=== PATIENT | female | born 1970 | race Caucasian/White ===

== ENCOUNTER → 2017-09-11 | Outpatient (CLI) | payer OTHER ==
[2017-09-11 09:42] LABS: HCT 34.6 % (34.0-46.0); MCH 29.1 pg (25.0-35.0); MCHC 31.8 g/dL (31.0-37.0); MCV 91.6 fL (80.0-100.0); Mean Platelet Volume 7.3; Platelet Count 221 k/uL (150-450); RBC 3.78 m/uL (3.80-5.40); RDW 13.5 % (11.5-15.5); WBC 6.2 k/uL (3.8-10.6)
[2017-09-11 18:32] LABS: Hemoglobin A1C 4.7 % (4.0-6.0)
== END | disposition home or self-care (01) ==
LOC: LABWHC1 08:12
PROVIDERS: ATTEND Obstetrics & Gynecology
DX: Z34.90 Encounter for supervision of normal pregnancy, unspecified, unspecified trimester (principal); Z3A.00 Weeks of gestation of pregnancy not specified
CPT/HCPCS: 36415; 82950; 83036; 85027; 86762; 86780; 86850; 86900; 86901; 87340

== ENCOUNTER 2017-09-23 08:09 | Emergency (ER) | payer OTHER ==
[2017-09-23 08:14] VITALS: TEMP 98.2
--- NOTE | 2017-09-23 08:32 | ED ---
Extremity Problem HPI - General Chief complaint: Extremity Problem,Nontraumatic Stated complaint: Poss Blood Clot Time Seen by Provider: 09/23/17 08:19 Source: patient, RN notes reviewed, old records reviewed Mode of arrival: ambulatory Limitations: no limitations - History of Present Illness Initial comments: 47-year-old female is currently 14 weeks presents emergency Department with sudden onset of left leg redness and swelling. She reports having history of blood clots in the past. She reports that she was prescribed Lovenox but then just decided to stop taking it. Patient relates that she did take a Lovenox and 2 baby aspirin this morning. Patient states that she sees follows with Dr. Rod. She reports that her leg is painful. She denies any knee pain. No history of trauma. - Related Data Home Medications Medication Instructions Recorded Confirmed Aspirin 162 mg PO DAILY 09/23/17 09/23/17 Calcium Carbonate/Vitamin D3 1 tab PO DAILY 09/23/17 09/23/17 [Calcium 600-Vit D3 400 Caplet] Cholecalciferol (Vitamin D3) 2,000 unit PO DAILY 09/23/17 09/23/17 [Vitamin D3] Enoxaparin Sodium 40 mg SQ DAILY 09/23/17 09/23/17 Ferrous Sulfate [Feosol] 325 mg PO DAILY 09/23/17 09/23/17 Multivitamins, Thera [Multivitamin 2 tab PO DAILY 09/23/17 09/23/17 (formulary)] Phytonadione [Vitamin K] 5 mg PO DAILY 09/23/17 09/23/17 Tgi-Brqi-Fxllk Acid 1 cap PO DAILY 09/23/17 09/23/17 [-U Capsule (formulary)] Vitamin A 8,000 unit PO DAILY 09/23/17 09/23/17 Vitamin E 1,000 unit PO DAILY 09/23/17 09/23/17 Previous Rx's Medication Instructions Recorded Cephalexin [Keflex] 500 mg PO Q6HR #28 cap 09/23/17 Allergies Allergy/AdvReac Type Severity Reaction Status Date / Time No Known Allergies Allergy Verified 09/23/17 09:16 Review of Systems ROS Statement: Those systems with pertinent positive or pertinent negative responses have been documented in the HPI. ROS Other: All systems not noted in ROS Statement are negative. Past Medical History Past Medical History: Deep Vein Thrombosis (DVT) History of Any Multi-Drug Resistant Organisms: None Reported Past Surgical History: Bariatric Surgery Additional Past Surgical History / Comment(s): skin removal Past Psychological History: No Psychological Hx Reported Smoking Status: Former smoker Past Alcohol Use History: None Reported Past Drug Use History: None Reported General Exam - General Exam Comments Initial Comments: 47-year-old female. Alert. No acute distress. Limitations: no limitations General appearance: alert, in no apparent distress Head exam: Present: atraumatic, normocephalic, normal inspection Eye exam: Present: normal appearance, PERRL, EOMI. Absent: scleral icterus, conjunctival injection, periorbital swelling ENT exam: Present: normal exam, mucous membranes moist Neck exam: Present: normal inspection. Absent: tenderness, meningismus, lymphadenopathy Respiratory exam: Present: normal lung sounds bilaterally. Absent: respiratory distress, wheezes, rales, rhonchi, stridor Cardiovascular Exam: Present: regular rate, normal rhythm, normal heart sounds. Absent: systolic murmur, diastolic murmur, rubs, gallop, clicks GI/Abdominal exam: Present: soft, normal bowel sounds. Absent: distended, tenderness, guarding, rebound, rigid Extremities exam: Present: full ROM, normal capillary refill. Absent: normal inspection, tenderness, pedal edema, joint swelling, calf tenderness Right Knee exam: Present: normal inspection, full ROM Lower Leg exam: Present: full ROM, tenderness, swelling, erythema. Absent: normal inspection, abrasion, laceration, ecchymosis Ankle exam: Present: normal inspection, full ROM Foot/Toe exam: Present: normal inspection, full ROM Neurovascular tendon exam: Present: no vascular compromise Gait: observed and normal Back exam: Present: normal inspection Neurological exam: Present: alert, oriented X3, CN II-XII intact Course Vital Signs 09/23/17 09/23/17 08:11 10:25 Temperature 98.2 F Pulse Rate 63 57 L Respiratory 20 18 Rate Blood Pressure 120/56 105/56 O2 Sat by Pulse 100 98 Oximetry Medical Decision Making - Medical Decision Making 47-year-old female presents a chief complaint of lower extremity redness and swelling. Concern for possible DVT. Currently 14 weeks . She does have some erythema up the calf and around. Patient had ultrasound which was negative for DVT. White blood cell count was within normal limits. The leg is warm to touch. We'll put the patient on Keflex given a dose of Rocephin to cover for cellulitis. Discussion is follow-up promptly with PCP. This seema a line around the area of the areas worsening of redness should return for follow- up. Patient understood history plan will comply. Return parameters were discussed. - Lab Data Result diagrams: 09/23/17 08:33 09/23/17 08:33 Lab Results 09/23/17 09/23/17 09/23/17 Range/Units 08:33 08:33 08:33 WBC 6.6 (3.8-10.6) k/uL RBC 3.97 (3.80-5.40) m/uL Hgb 11.8 (11.4-16.0) gm/dL Hct 35.6 (34.0-46.0) % MCV 89.8 (80.0-100.0) fL MCH 29.7 (25.0-35.0) pg MCHC 33.1 (31.0-37.0) g/dL RDW 13.9 (11.5-15.5) % Plt Count 209 (150-450) k/uL Neutrophils % 71 % Lymphocytes % 19 % Monocytes % 7 % Eosinophils % 1 % Basophils % 0 % Neutrophils # 4.7 (1.3-7.7) k/uL Lymphocytes # 1.2 (1.0-4.8) k/uL Monocytes # 0.5 (0-1.0) k/uL Eosinophils # 0.1 (0-0.7) k/uL Basophils # 0.0 (0-0.2) k/uL PT 11.6 (9.0-12.0) sec INR 1.2 H (<1.2) APTT 28.7 (22.0-30.0) sec Sodium 142 (137-145) mmol/L Potassium 3.5 (3.5-5.1) mmol/L Chloride 107 (98-107) mmol/L Carbon Dioxide 25 (22-30) mmol/L Anion Gap 10 mmol/L BUN 9 (7-17) mg/dL Creatinine 0.48 L (0.52-1.04) mg/dL Est GFR (CKD-EPI)AfAm >90 (>60 ml/min/1.73 sqM) Est GFR (CKD-EPI)NonAf >90 (>60 ml/min/1.73 sqM) Glucose 66 L (74-99) mg/dL Calcium 8.7 (8.4-10.2) mg/dL - Radiology Data Radiology results: report reviewed Ultrasound was negative for DVT. Disposition Clinical Impression: Cellulitis of right leg Disposition: HOME SELF-CARE Condition: Good Instructions: Cellulitis (ED) Additional Instructions: Patient advised to monitor the area of redness of his worsening please return to emergency department if any fevers or chills. Take Motrin Tylenol for pain. Patient should keep the leg up and elevated. Patient should follow-up with primary care provider in the next 1-2 days. Prescriptions: Cephalexin [Keflex] 500 mg PO Q6HR #28 cap Is patient prescribed a controlled substance at d/c from ED?: No If prescribed controlled substance>3 days was MAPS reviewed?: No When asked, does pt state using other controlled substances?: No Referrals: Bubba Maldonado DO [Primary Care Provider] - 1-2 days Time of Disposition: 10:00
[2017-09-23 08:49] LABS: Basophils % (A) 0 %; Eosinophils # (A) 0.1 k/uL (0-0.7); Eosinophils % (A) 1 %; HCT 35.6 % (34.0-46.0); HGB 11.8 gm/dL (11.4-16.0); Lymphocytes # (A) 1.2 k/uL (1.0-4.8); Lymphocytes % (A) 19 %; MCH 29.7 pg (25.0-35.0); MCHC 33.1 g/dL (31.0-37.0); MCV 89.8 fL (80.0-100.0); Mean Platelet Volume 7.4; Monocytes # (A) 0.5 k/uL (0-1.0); Monocytes % (A) 7 %; Neutrophils # (A) 4.7 k/uL (1.3-7.7); Neutrophils % (A) 71 %; Platelet Count 209 k/uL (150-450); RBC 3.97 m/uL (3.80-5.40); RDW 13.9 % (11.5-15.5); WBC 6.6 k/uL (3.8-10.6)
[2017-09-23 08:54] LABS: INR 1.2 (<1.2); Partial Thromboplastin Time 28.7 sec (22.0-30.0); Prothrombin Time 11.6 sec (9.0-12.0)
[2017-09-23 08:57] LABS: Anion Gap 10 mmol/L; Blood Urea Nitrogen 9 mg/dL (7-17); Calcium 8.7 mg/dL (8.4-10.2); Carbon Dioxide 25 mmol/L (22-30); Chloride 107 mmol/L (98-107); Glucose 66 mg/dL (74-99); Potassium 3.5 mmol/L (3.5-5.1); Sodium 142 mmol/L (137-145)
[2017-09-23] MEDS ORDERED: cefTRIAXone IN SWFI 1,000 MG/10 ML SYRINGE IVP STA (09:44)
[2017-09-23 10:26] VITALS: BP 105/56; PULSE 57; RESP 18
--- NOTE | 2017-09-23 10:28 | US ---
EXAMINATION TYPE: US venous doppler duplex LE RT DATE OF EXAM: 09/23/2017 9:11 AM COMPARISON: NONE CLINICAL HISTORY: Pain. redness right lower leg SIDE PERFORMED: Right TECHNIQUE: The lower extremity deep venous system is examined utilizing real time linear array sonog bakari with graded compression, doppler sonography and color-flow sonography. VESSELS IMAGED: External Iliac Vein (EIV) Common Femoral Vein Deep Femoral Vein Greater Saphenous Vein * Femoral Vein Popliteal Vein Proximal Calf Veins (* superficial vessels) Right Leg: Negative for DVT Grayscale, color doppler, spectral doppler imaging performed of the deep veins of the right lower ext remity. There is normal flow, compressibility, vascular waveforms. IMPRESSION: No ultrasound evidence for acute DVT in the right lower extremity.
== END 2017-09-23 10:26 | disposition home or self-care (01) ==
LOC: EC 08:09
DX: O99.712 Diseases of the skin and subcutaneous tissue complicating pregnancy, second trimester (principal); L03.115 Cellulitis of right lower limb; Z3A.14 14 weeks gestation of pregnancy; Z86.718 Personal history of other venous thrombosis and embolism; Z87.891 Personal history of nicotine dependence; Z79.82 Long term (current) use of aspirin; Z79.01 Long term (current) use of anticoagulants; Z79.899 Other long term (current) drug therapy
CPT/HCPCS: 36415; 80048; 85025; 85610; 85730; 93971; 99284; 96374; J0696